=== PATIENT | male | born 1955 | race Asian ===

== ENCOUNTER 2020-11-23 08:45 | Outpatient (CLI) | payer MEDICARE | END 2020-11-23 08:46 | disposition home or self-care (01) | LOC: TBSIIMAG 08:45 | PROVIDERS: ATTEND Urology | DX: R97.20 Elevated prostate specific antigen [PSA] (principal) | CPT/HCPCS: 72197 ==

== ENCOUNTER 2024-04-08 07:58 | Outpatient (CLI) | payer MEDICARE | END 2024-04-08 07:59 | disposition home or self-care (01) | LOC: SCSMRI 07:58 | PROVIDERS: ATTEND Orthopaedic Surgery | DX: M24.811 Other specific joint derangements of right shoulder, not elsewhere classified (principal); S46.911A Strain of unspecified muscle, fascia and tendon at shoulder and upper arm level, right arm, initial encounter; M19.011 Primary osteoarthritis, right shoulder; S43.081A Other subluxation of right shoulder joint, initial encounter | CPT/HCPCS: 70250 ==

== ENCOUNTER 2025-05-06 16:11 | Outpatient (CLI) | payer MEDICARE | END 2025-05-06 16:12 | disposition home or self-care (01) | LOC: SCSRAD 16:11 | PROVIDERS: ATTEND Nurse Practitioner Family | DX: R05.1 Acute cough (principal) | CPT/HCPCS: 71046 ==